=== PATIENT | female | born 1990 | race Two or more races ===

== ENCOUNTER 2023-08-08 17:28 | Emergency (ER) | payer MEDICAID ==
[~2023-08-08] VITALS: Ht 167.6 cm; Wt 63.5 kg
[2023-08-08] MEDS: IV NS 0.9% 1,000 ML BAG IV ONE (18:15)
[2023-08-08] MEDS: FAMOTIDINE/PF INJ 20 MG/2 ML VIAL IV ONE (18:15)
[2023-08-08] MEDS: diphenhydrAMINE HCL 50 MG CAPSULE PO ONE (18:17)
[2023-08-08] MEDS ORDERED: methylPREDNISolone SOD SUCC 125 MG/2ML VIAL ONE (18:18)
[2023-08-08] MEDS ORDERED: diphenhydrAMINE HCL 50 MG/ML VIAL ONE (18:18)
[2023-08-08] MEDS ORDERED: FAMOTIDINE/PF INJ 20 MG/2 ML VIAL IV ONE (18:18)
[2023-08-08] MEDS: methylPREDNISolone SOD SUCC 125 MG/2ML VIAL IV ONE (18:19)
[2023-08-08] MEDS ORDERED: FAMO20TA8 PO (19:20)
[2023-08-08] MEDS ORDERED: PRED20TA PO (19:20)
[2023-08-08] MEDS ORDERED: DIPH25CA83 PO (19:20)
[2023-08-08 19:38] VITALS: BP 123/76; TEMP 98.1; O2SAT 100
== END 2023-08-08 19:38 | disposition home or self-care (01) ==
LOC: ER 17:40
DX: L50.0 Allergic urticaria (principal)
CPT/HCPCS: 99284; 96374; 96361; 96375; J1200; J3490; J2930; J7040